=== PATIENT | male | born 1990 | race African-American/Black ===

== ENCOUNTER 2019-02-05 14:32 | Emergency (ER) | payer OTHER ==
[~2019-02-05] VITALS: Ht 157.5 cm; Wt 63.0 kg
[2019-02-05] MEDS ORDERED: IBUPROFEN 600600 M1 PO (16:10)
[2019-02-05 16:12] VITALS: BP 131/76
== END 2019-02-05 16:12 | disposition home or self-care (01) ==
LOC: ER 14:32
DX: S80.12XA Contusion of left lower leg, initial encounter (principal); W20.8XXA Other cause of strike by thrown, projected or falling object, initial encounter; Y92.89 Other specified places as the place of occurrence of the external cause; Y93.89 Activity, other specified; Y99.8 Other external cause status

== ENCOUNTER 2019-10-04 06:26 | Emergency (ER) | payer OTHER ==
[~2019-10-04] VITALS: Ht 157.5 cm; Wt 61.2 kg
[~2019-10-04 06:26] MED LIST: IBUPROFEN 600600 M1 PO
[2019-10-04] MEDS ORDERED: IBUPROFEN 600600 M1 PO (08:53)
[2019-10-04 09:35] VITALS: BP 117/69
== END 2019-10-04 09:35 | disposition home or self-care (01) ==
LOC: ER 06:26
DX: R51 Headache (principal); R42 Dizziness and giddiness; G91.9 Hydrocephalus, unspecified

== ENCOUNTER 2020-07-21 08:36 | Emergency (ER) | payer OTHER ==
[~2020-07-21] VITALS: Ht 157.5 cm; Wt 61.2 kg
[2020-07-21] MEDS ORDERED: KEFLEX500 M1 PO ×2 (09:58→10:13)
[2020-07-21 10:05] VITALS: BP 134/95
== END 2020-07-21 10:15 | disposition home or self-care (01) ==
LOC: ER 08:36
DX: L73.9 Follicular disorder, unspecified (principal); Z98.2 Presence of cerebrospinal fluid drainage device

== ENCOUNTER 2021-09-24 09:51 | Emergency (ER) | payer OTHER ==
[~2021-09-24] VITALS: Ht 157.5 cm; Wt 68.0 kg
[~2021-09-24 09:51] MED LIST changes: +KEFLEX500 M1 PO
[2021-09-24 10:49] VITALS: BP 137/97
[2021-09-24] MEDS ORDERED: DOXYCYCLINE 10100 MG PO (12:21)
== END 2021-09-24 12:42 | disposition home or self-care (01) ==
LOC: ER 09:51
DX: L73.2 Hidradenitis suppurativa (principal)